=== PATIENT | male | born 1970 | race Caucasian/White ===

== ENCOUNTER 2017-07-19 19:05 | Emergency (ER) | payer SELFPAY ==
[~2017-07-19] VITALS: Ht 172.7 cm; Wt 95.7 kg
[2017-07-19 19:12] VITALS: BP 142/97; Ht 172.7 cm; Wt 95.7 kg
== END 2017-07-19 21:15 | disposition home or self-care (01) ==
LOC: ED 19:05
DX: S20.212A Contusion of left front wall of thorax, initial encounter (principal); I10 Essential (primary) hypertension; E11.9 Type 2 diabetes mellitus without complications; E78.00 Pure hypercholesterolemia, unspecified; V09.9XXA Pedestrian injured in unspecified transport accident, initial encounter; Y93.89 Activity, other specified; Y92.89 Other specified places as the place of occurrence of the external cause; Y99.8 Other external cause status
CPT/HCPCS: J1885

== ENCOUNTER 2020-02-26 12:52 | Emergency (ER) | payer SELFPAY ==
[~2020-02-26] VITALS: Ht 157.5 cm; Wt 90.3 kg
[2020-02-26 12:57] VITALS: Ht 157.5 cm; Wt 90.3 kg
[2020-02-26 13:31] VITALS: BP 151/109
== END 2020-02-26 13:31 | disposition home or self-care (01) ==
LOC: ED 12:52
DX: G51.8 Other disorders of facial nerve (principal); I10 Essential (primary) hypertension; E11.9 Type 2 diabetes mellitus without complications; E78.00 Pure hypercholesterolemia, unspecified; Z98.890 Other specified postprocedural states
CPT/HCPCS: J7512